=== PATIENT | female | born 2005 | race Caucasian/White ===

== ENCOUNTER → 2025-05-16 | Outpatient (CLI) | payer BC, OTHER ==
[~2025-05-16] MED LIST: ACET650SUP PR; ALBU90I INH; ALBU90OI; ALBU90OI61 INH; AMOCLA250S PO; AMOX50SU PO; AZIT200SU PO; CODACEE120 PO; FLUORIDE DROPS; IBUP100S PO; KETO15TC TP; MULT50L; MVI WITH FLUORIDE PO; NYST100TO TOP; NYSTRIT TOP; ONDA4ODT MM; RXONDA4ODT MM; SULTRIEL PO
[2025-05-16 19:15] LABS: Bacterial Vaginosis PCR Negative (NEGATIVE); Candida Group, PCR NOT DETECTED (NOT DETECT); Candida glabrata-krusei, PCR NOT DETECTED (NOT DETECT)
== END ==
LOC: LAB SHORT 16:34 → LAB 16:34
DX: N89.8 Other specified noninflammatory disorders of vagina (principal); N39.0 Urinary tract infection, site not specified
CPT/HCPCS: 81515; 87077; 87086; 87186

== ENCOUNTER → 2025-07-09 | Outpatient (CLI) | payer BC, OTHER | LOC: LAB SHORT 16:38 → LAB 16:38 | DX: N30.00 Acute cystitis without hematuria (principal) | CPT/HCPCS: 87077; 87086; 87186 ==

== ENCOUNTER → 2025-07-30 | Outpatient (CLI) | payer BC, OTHER | LOC: LAB 16:28 → LAB SHORT 16:28 | DX: N39.0 Urinary tract infection, site not specified (principal) | CPT/HCPCS: 87077; 87086; 87186 ==